=== PATIENT | female | born 2005 | race Caucasian/White ===

== ENCOUNTER 2025-03-04 20:22 | Outpatient (CLI) | payer BC, SELFPAY | END 2025-03-04 20:23 | disposition home or self-care (01) | LOC: AMB 03-08 12:37 | PROVIDERS: Visit Provider Family Medicine | DX: R55 Syncope and collapse (principal) | CPT/HCPCS: A0425; A0429 ==

== ENCOUNTER 2025-03-04 20:54 | Emergency (ER) | payer BC, SELFPAY ==
[2025-03-04] VITALS (10 sets, daily range): BP systolic 110–124; BP diastolic 77–81; PULSE 80–83; RESP 16–24; TEMP 36.2; O2SAT 92–100; BMI 27.5
--- NOTE | 2025-03-04 21:20 | ED.GENADULT ---
HPI - General Adult General Chief complaint: Syncope/Fainted <Jinny Germain MD - Last Filed: 03/11/25 21:56> Stated complaint: Fainting <Jinny Germain MD - Last Filed: 03/11/25 21:56> Time Seen by Provider: 03/04/25 21:13 <Jinny Germain MD - Last Filed: 03/11/25 21:56> Source: patient <Jinny Germain MD - Last Filed: 03/11/25 21:56> Mode of arrival: EMS <Jinny Germain MD - Last Filed: 03/11/25 21:56> Limitations: no limitations <Jinny Germain MD - Last Filed: 03/11/25 21:56> History of Present Illness HPI narrative: 19-year-old female coming in today after syncopal episode. Patient states that about 2 hours ago she was at an event indoors and she started feeling nauseated. Vision started going dark. She stood up to leave the area and she fainted. She states that she hit her head on the ground. She then woke up and tried to stand up. When she stood up she took a few steps and passed out again. EMS was called at this time. She states that this has never happened to her before. She did fast all day yesterday he for [employer] [place]. She had a very small lunch today and skipped breakfast. She had 1 beer in the evening. And she has been taking ?sips of water throughout the day. She feels okay now she states. She denies headache or neck pain. She denies chest or abdominal pain. She is not short of breath. She denies any recent illness. She denies palpitations. She remembers the event. Past medical history significant for ADHD. Patient takes Focalin and control. <Jinny Germain MD - Last Filed: 03/11/25 21:56> Related Data Allergies/adverse reactions: Allergies Allergy/AdvReac Type Severity Reaction Status Date / Time No Known Drug Allergies Allergy Verified 03/04/25 22:07 <Jinny Germain MD - Last Filed: 03/11/25 21:56> Review of Systems Status of ROS: Reports: 10 or more systems reviewed and unremarkable except as noted in History and below <Jinny Germain MD - Last Filed: 03/11/25 21:56> [facility] Social History: Social History Smoking Status: Never smoker How often do you have a drink containing alcohol: never AUDIT-C Alcohol total score: 0 Non-prescribed substance use: denies use <Jinny Germain MD - Last Filed: 03/11/25 21:56> Exam Narrative: Exam Narrative: Well-nourished well-developed patient in no acute distress. Alert and oriented. Answers questions appropriately. Mood and affect are appropriate. Thoughts are goal oriented and rational. No tangential or magical thinking noted. Patient speaks in full sentences without needing to catch her breath. HEENT: Normocephalic atraumatic. Pupils are equally round reactive to light. Extraocular muscles are intact. Conjunctivae are moist without any icterus noted. Moist mucous membranes. Posterior pharynx is normal. Neck is soft without discomfort. She has no pain with flexion, extension, side way bending and rotation at the cervical spine. No point tenderness at the cervical spine. No trauma noted to the scalp. Cardiovascular: Heart is regular rate and rhythm S1 and S2 are present without any murmurs. Lungs: Clear to auscultation bilaterally no wheezes rhonchi or rales are appreciated. Patient takes deep breaths without any discomfort. Abdomen: Soft and nontender nondistended with normal bowel sounds. No guarding or rebound. No masses or organomegaly appreciated. Extremities: Bilateral lower extremities are without edema. Normal DP and PT pulses. Skin: Well perfused without any obvious rashes. She <Jinny Germain MD - Last Filed: 03/11/25 21:56> Const: Vital Signs, click to edit/add: Vital Signs - 24 hr 03/04/25 20:57 03/04/25 21:18 03/04/25 21:20 Temperature 97.2 F L Pulse Rate 83 Pulse Rate [Pulse Oximeter] 82 Respiratory Rate 16 Blood Pressure Blood Pressure [Le ft Upper Arm] 110/81 Pulse Oximetry 100 97 100 Oxygen Delivery Me thod Room Air 03/04/25 21:35 03/04/25 21:45 03/04/25 22:00 Temperature Pulse Rate 80 82 Pulse Rate [Pulse Oximeter] Respiratory Rate 17 17 Blood Pressure Blood Pressure [Le ft Upper Arm] Pulse Oximetry 100 92 Oxygen Delivery Me thod 03/04/25 22:15 03/04/25 23:26 03/04/25 23:27 Temperature Pulse Rate 83 Pulse Rate [Pulse Oximeter] Respiratory Rate 18 20 24 Blood Pressure 124/77 Blood Pressure [Le ft Upper Arm] Pulse Oximetry 100 Oxygen Delivery Me thod Room Air 03/04/25 23:30 Temperature Pulse Rate 81 Pulse Rate [Pulse Oximeter] Respiratory Rate 18 Blood Pressure Blood Pressure [Le ft Upper Arm] Pulse Oximetry 100 Oxygen Delivery Me thod <Jinny Germain MD - Last Filed: 03/11/25 21:56> Vital Signs, click to edit/add: Vital Signs - 24 hr 03/04/25 20:57 03/04/25 21:18 03/04/25 21:20 Temperature 97.2 F L Pulse Rate 83 Pulse Rate [Pulse Oximeter] 82 Respiratory Rate 16 Blood Pressure Blood Pressure [Le ft Upper Arm] 110/81 Pulse Oximetry 100 97 100 Oxygen Delivery Me thod Room Air 03/04/25 21:35 03/04/25 21:45 03/04/25 22:00 Temperature Pulse Rate 80 82 Pulse Rate [Pulse Oximeter] Respiratory Rate 17 17 Blood Pressure Blood Pressure [Le ft Upper Arm] Pulse Oximetry 100 92 Oxygen Delivery Me thod 03/04/25 22:15 03/04/25 23:26 03/04/25 23:27 Temperature Pulse Rate 83 Pulse Rate [Pulse Oximeter] Respiratory Rate 18 20 24 Blood Pressure 124/77 Blood Pressure [Le ft Upper Arm] Pulse Oximetry 100 Oxygen Delivery Me thod Room Air 03/04/25 23:30 Temperature Pulse Rate 81 Pulse Rate [Pulse Oximeter] Respiratory Rate 18 Blood Pressure Blood Pressure [Le ft Upper Arm] Pulse Oximetry 100 Oxygen Delivery Me thod <Jinny Stark MD - Last Filed: 03/05/25 00:52> Course Course ED Course: She received 500 mL of normal saline in the ambulance. Another 1 L was ordered. EKG, read by me, shows normal sinus rhythm with a pulse of 75. At this time will check blood work make sure there is no evidence of anemia or electrolyte abnormalities that could of contributed to her symptoms. Of note, it was very difficult to draw labs as patient did appear to be volume depleted. <Jinny Germain MD - Last Filed: 03/11/25 21:56> Reevaluation(s) Time of Reevaluation #1: 00:47 <Jinny Stark MD - Last Filed: 03/05/25 00:52> Reevaluation #1: Patient is getting up to go to the restroom, has had to urinate twice now since receiving fluids. Her repeat lactate has improved. She did receive a L of lactated Ringer's which should replete some potassium, at least not lower it further. Patient is feeling good, is ambulatory here now and does feel better. <Jinny Stark MD - Last Filed: 03/05/25 00:52> Vital Signs Vital signs: Initial Vital Signs Temperature 97.2 F L 03/04/25 20:57 Temperature Source Temporal Artery Scan 03/04/25 20:57 Pulse Rate 82 03/04/25 20:57 Respiratory Rate 16 03/04/25 20:57 Blood Pressure 110/81 03/04/25 20:57 Blood Pressure Mean 90 03/04/25 20:57 Pulse Oximetry 100 03/04/25 20:57 Oxygen Delivery Method Room Air 03/04/25 20:57 Vital Signs Temperature 97.2 F L 03/04/25 20:57 Pulse Rate 82 03/04/25 20:57 Respiratory Rate 16 03/04/25 20:57 Blood Pressure 110/81 03/04/25 20:57 Pulse Oximetry 100 03/04/25 20:57 Oxygen Delivery Method Room Air 03/04/25 20:57 Temperature 98.2 F 03/05/25 01:01 Pulse Rate 79 03/05/25 01:01 Respiratory Rate 18 03/05/25 01:01 Blood Pressure 112/78 03/05/25 01:01 Pulse Oximetry 100 03/05/25 01:00 Oxygen Delivery Method Room Air 03/05/25 01:00 <Jinny Germain MD - Last Filed: 03/11/25 21:56> Initial Vital Signs Temperature 97.2 F L 03/04/25 20:57 Temperature Source Temporal Artery Scan 03/04/25 20:57 Pulse Rate 82 03/04/25 20:57 Respiratory Rate 16 03/04/25 20:57 Blood Pressure 110/81 03/04/25 20:57 Blood Pressure Mean 90 03/04/25 20:57 Pulse Oximetry 100 03/04/25 20:57 Oxygen Delivery Method Room Air 03/04/25 20:57 Vital Signs Temperature 97.2 F L 03/04/25 20:57 Pulse Rate 82 03/04/25 20:57 Respiratory Rate 16 03/04/25 20:57 Blood Pressure 110/81 03/04/25 20:57 Pulse Oximetry 100 03/04/25 20:57 Oxygen Delivery Method Room Air 03/04/25 20:57 Temperature 98.2 F 03/05/25 01:01 Pulse Rate 79 03/05/25 01:01 Respiratory Rate 18 03/05/25 01:01 Blood Pressure 112/78 03/05/25 01:01 Pulse Oximetry 100 03/05/25 01:00 Oxygen Delivery Method Room Air 03/05/25 01:00 <Jinny Stark MD - Last Filed: 03/05/25 00:52> Medications Administered Medications: Discontinued Medications Generic Name Dose Route Start Last Admin Trade Name Freq PRN Reason Stop Dose Admin Sodium Chloride 1,000 mls @ 1,000 mls/hr 03/04/25 21:30 03/04/25 22:49 0.9 % Sodium Chloride 1000 Ml IV 03/04/25 22:29 Infused .Q1H ZULMA Infusion Lactated Ringer's 1,000 mls @ 1,000 mls/hr 03/04/25 22:33 03/04/25 23:44 Lactated Ringers 1000 Ml IV 03/04/25 23:32 Infused .Q1H ONE Infusion <Jinny Germain MD - Last Filed: 03/11/25 21:56> Discontinued Medications Generic Name Dose Route Start Last Admin Trade Name Freq PRN Reason Stop Dose Admin Sodium Chloride 1,000 mls @ 1,000 mls/hr 03/04/25 21:30 03/04/25 22:49 0.9 % Sodium Chloride 1000 Ml IV 03/04/25 22:29 Infused .Q1H ZULMA Infusion Lactated Ringer's 1,000 mls @ 1,000 mls/hr 03/04/25 22:33 03/04/25 23:44 Lactated Ringers 1000 Ml IV 03/04/25 23:32 Infused .Q1H ONE Infusion <Jinny Stark MD - Last Filed: 03/05/25 00:52> Medical Decision Making Lab Data Lab results reviewed: Yes I reviewed the patient's lab results <Jinny Stark MD - Last Filed: 03/05/25 00:52> Labs: Lab Results 03/04/25 03/04/25 03/04/25 Range/Units 22:00 22:30 23:57 WBC 6.59 (4.50-11.00) K/uL RBC 4.86 (4.00-5.20) m/uL Hgb 12.9 (12.0-16.0) gm/dL Hct 39.9 (33.0-51.0) % MCV 82 (80-100) fL MCH 27 (26-34) pg MCHC 32 (32-36) gm/dL RDW Coeff of Suha 13.8 (11.5-15.5) % Plt Count 303 (140-440) K/uL Neut % (Auto) 49.8 (42.0-72.0) % Lymph % (Auto) 32.2 (20-44) % [place] % (Auto) 12.7 H (0.0-11.0) % Eos % (Auto) 3.9 (0.0-7.0) % Baso % (Auto) 0.9 (0.0-3.0) % Neut # (Auto) 3.28 (1.7-7.0) K/uL Lymph # (Auto) 2.12 (0.90-2.90) K/uL [place] # (Auto) 0.80 (0.00-0.90) K/UL Eos # (Auto) 0.26 (0.00-0.50) K/uL Baso # (Auto) 0.06 (0.00-0.30) K/uL Abs Immat Gran (auto) 0.03 (0.00-0.30) K/uL Imm/Tot Granulo (auto) 0.5 % Sodium 138 (135-149) mmol/L Potassium 3.2 L (3.6-5.1) mmol/L Chloride 104 (96-114) mmol/L Carbon Dioxide 22 (20-32) mmol/L Anion Gap 12 (7-15) mEq/L BUN 8 (5-24) mg/dL Creatinine 0.8 (0.6-1.2) mg/dL Estimated Creat Clear 97.67 Estimated GFR 109 ml/min Glucose 87 (60-115) mg/dL Lactate 3.5 H 2.5 H (0.5-1.9) mmol/L Calcium 8.9 (8.7-10.8) mg/dL Magnesium 2.1 (1.5-2.6) mg/dL Total Bilirubin 0.8 (0.1-1.5) mg/dL Direct Bilirubin 0.3 (0.0-0.5) mg/dL AST 24 (12-35) U/L ALT 15 (4-35) U/L Alkaline Phosphatase 65 (40-150) U/L Troponin I < 0.01 (0.01-0.04) ng/mL Total Protein 7.5 (6.0-8.3) g/dL Albumin 4.3 (3.3-5.0) g/dL TSH 3.430 (0.270-4.20) uIU/mL Urine Color Yellow (Yellow) Urine Appearance Clear (Clear) Urine pH 7.0 (5.0-8.5) Ur Specific [place] 1.015 (1.000-1.030) Urine Protein Negative (Negative) Urine Glucose (UA) Negative (Negative) Urine Ketones Negative (Negative) Urine Blood Negative (Negative) Urine Nitrite Negative (Negative) Urine Bilirubin Negative (Negative) Urine Urobilinogen 0.2 (0.2-1.0) Ur Leukocyte Esterase Negative (Negative) Urine RBC 0-2 (0-2) Urine WBC 0-2 (0-5) Ur Squamous Epith Cells Few (None-Few) Urine Bacteria None (None) Urine HCG, Qual Negative (Negative) Ethyl Alcohol < 0.01 (0.01-0.03) % <Jinny Germain MD - Last Filed: 03/11/25 21:56> Lab Results 03/04/25 03/04/25 03/04/25 Range/Units 22:00 22:30 23:57 WBC 6.59 (4.50-11.00) K/uL RBC 4.86 (4.00-5.20) m/uL Hgb 12.9 (12.0-16.0) gm/dL Hct 39.9 (33.0-51.0) % MCV 82 (80-100) fL MCH 27 (26-34) pg MCHC 32 (32-36) gm/dL RDW Coeff of Suha 13.8 (11.5-15.5) % Plt Count 303 (140-440) K/uL Neut % (Auto) 49.8 (42.0-72.0) % Lymph % (Auto) 32.2 (20-44) % [place] % (Auto) 12.7 H (0.0-11.0) % Eos % (Auto) 3.9 (0.0-7.0) % Baso % (Auto) 0.9 (0.0-3.0) % Neut # (Auto) 3.28 (1.7-7.0) K/uL Lymph # (Auto) 2.12 (0.90-2.90) K/uL [place] # (Auto) 0.80 (0.00-0.90) K/UL Eos # (Auto) 0.26 (0.00-0.50) K/uL Baso # (Auto) 0.06 (0.00-0.30) K/uL Abs Immat Gran (auto) 0.03 (0.00-0.30) K/uL Imm/Tot Granulo (auto) 0.5 % Sodium 138 (135-149) mmol/L Potassium 3.2 L (3.6-5.1) mmol/L Chloride 104 (96-114) mmol/L Carbon Dioxide 22 (20-32) mmol/L Anion Gap 12 (7-15) mEq/L BUN 8 (5-24) mg/dL Creatinine 0.8 (0.6-1.2) mg/dL Estimated Creat Clear 97.67 Estimated GFR 109 ml/min Glucose 87 (60-115) mg/dL Lactate 3.5 H 2.5 H (0.5-1.9) mmol/L Calcium 8.9 (8.7-10.8) mg/dL Magnesium 2.1 (1.5-2.6) mg/dL Total Bilirubin 0.8 (0.1-1.5) mg/dL Direct Bilirubin 0.3 (0.0-0.5) mg/dL AST 24 (12-35) U/L ALT 15 (4-35) U/L Alkaline Phosphatase 65 (40-150) U/L Troponin I < 0.01 (0.01-0.04) ng/mL Total Protein 7.5 (6.0-8.3) g/dL Albumin 4.3 (3.3-5.0) g/dL TSH 3.430 (0.270-4.20) uIU/mL Urine Color Yellow (Yellow) Urine Appearance Clear (Clear) Urine pH 7.0 (5.0-8.5) Ur Specific [place] 1.015 (1.000-1.030) Urine Protein Negative (Negative) Urine Glucose (UA) Negative (Negative) Urine Ketones Negative (Negative) Urine Blood Negative (Negative) Urine Nitrite Negative (Negative) Urine Bilirubin Negative (Negative) Urine Urobilinogen 0.2 (0.2-1.0) Ur Leukocyte Esterase Negative (Negative) Urine RBC 0-2 (0-2) Urine WBC 0-2 (0-5) Ur Squamous Epith Cells Few (None-Few) Urine Bacteria None (None) Urine HCG, Qual Negative (Negative) Ethyl Alcohol < 0.01 (0.01-0.03) % <Jinny Stark MD - Last Filed: 03/05/25 00:52> Discharge Plan Discharge Clinical Impression: Syncope, Dehydration <Jinny Germain MD - Last Filed: 03/11/25 21:56> Patient Disposition: Home, Self-Care <Jinny Germain MD - Last Filed: 03/11/25 21:56> Condition: Stable <Jinny Germain MD - Last Filed: 03/11/25 21:56> Additional Instructions: Recommend increasing your water intake daily to at least 60-80 ounces of water daily. It is recommended that you try to eat more consistently, if not 3 mils a day at least frequent smaller snacks. If you have further concerns, feel that you are developing an illness, please seek re-evaluation. <Jinny Germain MD - Last Filed: 03/11/25 21:56> Activity Level: Activity as Tolerated <Jinny Germain MD - Last Filed: 03/11/25 21:56> Activity as Tolerated <Jinny Stark MD - Last Filed: 03/05/25 00:52> Follow Up/Referrals: Provider,Not a Local [Primary Care Provider, Family Practice] <Jinny Germain MD - Last Filed: 03/11/25 21:56> Stand Alone Forms: MyHealth Info Instructions <Jinny Germain MD - Last Filed: 03/11/25 21:56>
[2025-03-04 22:22] LABS: Lactate* 3.5 mmol/L (0.5-1.9)
[2025-03-04 22:36] LABS: Hematocrit* 39.9 % (33.0-51.0); Hemoglobin* 12.9 gm/dL (12.0-16.0); Immature Granulocytes Abs Auto 0.03 K/uL (0.00-0.30); Immature Granulocytes Pct Auto 0.5 %; Lymphocytes Absolute Auto 2.12 K/uL (0.90-2.90); Mean Corpuscular HGB Conc 32 gm/dL (32-36); Mean Corpuscular Hemoglobin 27 pg (26-34); Mean Corpuscular Volume 82 fL (80-100); RDW Coefficient of Variation % 13.8 % (11.5-15.5); Red Blood Count* 4.86 m/uL (4.00-5.20); White Blood Count* 6.59 K/uL (4.50-11.00)
[2025-03-04 22:41] LABS: Appearance Urine Clear (Clear); Ur HCG Qualitative* Negative (Negative)
[2025-03-04] MEDS: LACTATED RINGERS 1000 ML 1,000 ML IV (22:41)
[2025-03-04 22:43] LABS: Slide Review Reflex No
[2025-03-04 22:46] LABS: Albumin* 4.3 g/dL (3.3-5.0); Chloride* 104 mmol/L (96-114); Sodium* 138 mmol/L (135-149)
[2025-03-04 22:47] LABS: Potassium* 3.2 mmol/L (3.6-5.1)
[2025-03-04 22:49] LABS: Alanine Aminotransferase* 15 U/L (4-35); Alkaline Phosphatase* 65 U/L (40-150); Anion Gap 12 mEq/L (7-15); Aspartate Amino Transferase* 24 U/L (12-35); Bilirubin Direct* 0.3 mg/dL (0.0-0.5); Bilirubin Total* 0.8 mg/dL (0.1-1.5); Blood Urea Nitrogen* 8 mg/dL (5-24); Calcium* 8.9 mg/dL (8.7-10.8); Carbon Dioxide* 22 mmol/L (20-32); Creatinine* 0.8 mg/dL (0.6-1.2); Est. Creatinine Clearance* 97.67; Estimated Glomerular Filt Rate 109 ml/min; Glucose* 87 mg/dL (60-115); Total Protein* 7.5 g/dL (6.0-8.3)
[2025-03-04 23:02] LABS: Ethanol* < 0.01 % (0.01-0.03)
[2025-03-05 00:05] LABS: Lactate* 2.5 mmol/L (0.5-1.9)
[2025-03-05 01:00] VITALS: BP 112/78; PULSE 79; RESP 18; TEMP 36.8; O2SAT 100
[2025-03-05 01:01] VITALS: BP 112/78; PULSE 79; RESP 18; TEMP 36.8
== END 2025-03-05 01:01 | disposition home or self-care (01) ==
PROVIDERS: Emergency Provider Family Medicine
DX: R55 Syncope and collapse (principal); E86.0 Dehydration
CPT/HCPCS: 36415; 80048; 80076; 81001; 81025; 82077; 83605; 83735; 84443; 84484; 85025; 87086; 93005; 94761; 96360; 96361; 99284; J7030; J7120